=== PATIENT | male | born 1995 | race Caucasian/White ===

== ENCOUNTER 2016-07-20 23:10 | Emergency (ER) | payer BC ==
[~2016-07-20] VITALS: Ht 185.4 cm; Wt 99.8 kg
[2016-07-20 23:27] VITALS: BP 144/74
--- NOTE | 2016-07-21 00:25 | NUR ---
PT TAKEN TO BED 6
[2016-07-21 00:27] LABS: APPEARANCE,URINE CLEAR (CLEAR); BILIRUBIN,URINE NEGATIVE (NEGATIVE); BLOOD, URINE NEGATIVE (NEGATIVE); COLOR,URINE YELLOW (YELLOW); LEUKOCYTE ESTERASE ,URINE NEGATIVE (NEGATIVE); NITRITE, URINE NEGATIVE (NEGATIVE); PROTEIN,URINE NEGATIVE (NEGATIVE); UGLUCOSE NEGATIVE (NEGATIVE); UROBILINOGEN,URINE 0.2 EU/dL (0.2 - 1)
[2016-07-21 00:29] LABS: BACTERIA,URINE RARE /HPF (None Seen); MUCUS,URINE 2+ /LPF (None Seen); RBC,URINE 0-3 /HPF (0-5); SQUAMOUS EPITHELIAL CELL,UR 0-3 /LPF (0-3 (FEW)); WBC,URINE 0-3 /HPF (0-5)
--- NOTE | 2016-07-21 00:32 | NUR ---
C/O BACK PAIN SINCE NOON TODAY. DECREASED APPETITE EARLIER TODAY BUT NOW APPETITE HAS RETURNED WITHOUT PROBLEMS. NO EMESIS. PAIN IS INTERMITTED. NOW 0, EARLIER A 7. PT SKIN IS PINK/WARM/DRY; AAOX4 WITH EVEN AND STEADY GAIT; LUNGS CLEAR BL; HR EVEN AND REGULAR; PT DENIES ANY FEVER, CP, SOB, OR COUGH AT THIS TIME; PATIENT STATES PAIN OF 0/10 AT THIS TIME; VSS; PATIENT POSITIONED FOR COMFORT; HOB ELEVATED; BEDRAILS UP X2; BED DOWN. ER MD MADE AWARE OF PT STATUS.
--- NOTE | 2016-07-21 00:41 | NUR ---
Dr. Wood evaluating patient at bedside.
[2016-07-21] MEDS ORDERED: HYDROcodone/APAP 5/325 MG 1 TAB TAB PO ONE (00:50)
[2016-07-21] MEDS ORDERED: NACL 0.9% 1,000 ML IV ONE (00:50)
[2016-07-21 01:15] LABS: BASOPHILS # (AUTO) 0.1 K/uL (0.00-0.22); EOSINOPHILS # (AUTO) 0.1 K/uL (0-0.4); PLATELET COUNT (AUTO) 204 K/uL (140-450)
[2016-07-21 01:21] LABS: BASOPHILS % (AUTO) 1.6 % (0.0-2.0); HEMATOCRIT 46.7 % (36-52); HEMOGLOBIN 15.4 g/dL (12.0-18.0); LYMPHOCYTES # (AUTO) 0.9 K/uL (2.0-11.5); LYMPHOCYTES % (AUTO) 14.3 % (20.5-51.1); MEAN CORPUSCULAR HEMOGLOBIN 28 pg (27-31); MEAN CORPUSCULAR HGB CONC 33 g/dL (33-37); MEAN CORPUSCULAR VOLUME 85 fL (80-94); MONOCYTES # (AUTO) 0.8 K/uL (0.8-1.0); MONOCYTES % (AUTO) 11.9 % (1.7-9.3); NEUTROPHILS # (AUTO) 4.4 K/uL (1.8-7.7); NEUTROPHILS % (AUTO) 70.2 % (42.2-75.2); RED CELL DISTRIBUTION WIDTH 12.3 % (11.6-13.7); WHITE BLOOD COUNT (AUTO) 6.3 K/uL (4.8-10.8)
--- NOTE | 2016-07-21 01:30 | NUR ---
PT TO CT VIA WC
--- NOTE | 2016-07-21 01:40 | NUR ---
PT RETURN FROM CT
[2016-07-21 01:45] LABS: ANION GAP 11.1 (8-16); CALCIUM 8.4 mg/dL (8.5-10.1); CARBON DIOXIDE 29.6 mmol/L (21-32); CREATININE 1.1 mg/dL (0.6-1.3); POTASSIUM 3.7 mmol/L (3.5-5.1); TOTAL BILIRUBIN 0.9 mg/dL (0.0-1.0); TOTAL PROTEIN, SERUM 7.4 g/dL (6.4-8.2)
[2016-07-21 02:39] VITALS: BP 139/74
--- NOTE | 2016-07-21 02:39 | NUR ---
Patient discharged with v/s stable. Written and verbal after care instructions given and explained. Patient alert, oriented and verbalized understanding of instructions. Ambulatory with steady gait. All questions addressed prior to discharge. ID band removed. Patient advised to follow up with PMD. Rx of ROBAXIN AND MOTRIN given. Patient educated on indication of medication including possible reaction and side effects. Opportunity to ask questions provided and answered.
== END 2016-07-21 02:39 | disposition home or self-care (01) ==
LOC: MED 23:10
DX: S39.012A Strain of muscle, fascia and tendon of lower back, initial encounter (principal); R06.02 Shortness of breath; F17.210 Nicotine dependence, cigarettes, uncomplicated; X58.XXXA Exposure to other specified factors, initial encounter; Y93.89 Activity, other specified; Y92.89 Other specified places as the place of occurrence of the external cause; Y99.8 Other external cause status
CPT/HCPCS: 36415; 74176; 80053; 81001; 83690; 85025; 93005; 96360; 99285; J7030

== ENCOUNTER 2016-07-23 00:30 | Emergency (ER) | payer BC ==
[~2016-07-23] VITALS: Ht 185.4 cm; Wt 95.3 kg
[2016-07-23 00:37] VITALS: BP 138/90
--- NOTE | 2016-07-23 00:43 | NUR ---
PT TAKEN TO BED 3
--- NOTE | 2016-07-23 00:45 | NUR ---
21Y M BIB FAMILY C/O DIARRHEA X 1 DAY 5+ EPISODES. NO BLOOD IN DIARRHEA. PT STATES HE WAS HERE 3 DAYS AGO FOR AB PAIN AND SINCE THEN STILL NO RELIEF. PT STATES PAIN IS MID AB AND L. FLANK. 09/23 PAIN. 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 PT DENIES ANY SOB, DIFF BREATHING.
--- NOTE | 2016-07-23 00:53 | NUR ---
Dr. Bernardo evaluating patient at bedside.
[2016-07-23] MEDS ORDERED: NACL 0.9% 1,000 ML IV ONE (00:58)
[2016-07-23] MEDS ORDERED: ONDANSETRON 4 MG/2 ML VIAL IVP ONE (01:00)
[2016-07-23] MEDS ORDERED: KETOROLAC 30 MG/ML VIAL IVP ONE (01:00)
[2016-07-23] MEDS ORDERED: DICYCLOMINE 20 MG/2 ML VIAL IM ONE (01:00)
--- NOTE | 2016-07-23 01:52 | NUR ---
Pupils equal and reactive to light bilaterally. No facial droop noted. No smile deficit noted. Speech normal for patient. Patient is alert and oriented to person, place, time and event. Bilateral hand patent litigation associate equal. Bilateral foot push equal.
--- NOTE | 2016-07-23 02:14 | NUR ---
IV removed, catheter intact and site benign. Applied folded 4x4 gauze and tape to stop bleeding.
--- NOTE | 2016-07-23 02:15 | NUR ---
Patient discharged with v/s stable. Written and verbal after care instructions given and explained. Patient alert, oriented and verbalized understanding of instructions. Ambulatory with steady gait. All questions addressed prior to discharge. ID band removed. Patient advised to follow up with PMD. Rx of ZOFRAN ODT, BENTYL, AND FLAGYL given. Patient educated on indication of medication including possible reaction and side effects. Opportunity to ask questions provided and answered.
[2016-07-23 02:16] VITALS: BP 132/82
== END 2016-07-23 02:15 | disposition home or self-care (01) ==
LOC: MED 00:30
DX: K52.9 Noninfective gastroenteritis and colitis, unspecified (principal)
CPT/HCPCS: 36415; 80053; 81002; 83690; 85025; 96361; 96372; 96374; 96375; 99284; J0500; J1885; J2405; J7030